=== PATIENT | male | born 1950 | race Caucasian/White ===

== ENCOUNTER 2019-06-26 12:56 | Emergency (ER) | payer OTHER ==
[~2019-06-26] VITALS: Ht 193 cm; Wt 97.5 kg
--- NOTE | 2019-06-26 13:10 | NUR ---
pt bibra to er bed 12. per ems report pt got dizzy while walking from the store going back home carrying grocery. pt denies syncopal episode but states nearly fainted. also c/o blurring of vision but states chronic. placed on monitior. awaiting md white.
--- NOTE | 2019-06-26 13:18 | NUR ---
tania todd at bedside for eval.
[2019-06-26] MEDS ORDERED: IV NS 0.9% 500 ML BAG IV ONE (13:30)
--- NOTE | 2019-06-26 13:35 | NUR ---
iv line started blood drawn and sent to lab.
[2019-06-26 13:47] LABS: BASOPHILS # (AUTO) 0.1 /CMM (0.0-0.2); BASOPHILS % (AUTO) 0.7 % (0.0-2.0); EOSINOPHILS % (AUTO) 0.1 % (0.0-6.0); HEMATOCRIT 41 % (39-51); HEMOGLOBIN 14.3 g/dL (13.5-17.5); LYMPHOCYTES # (AUTO) 1.2 /CMM (0.8-4.8); LYMPHOCYTES % (AUTO) 14.6 % (20.0-44.0); MEAN CORPUSCULAR HGB CONC 35 g/dl (31.0-36.0); MEAN CORPUSCULAR VOLUME 90 fL (80-96); MONOCYTES # (AUTO) 0.6 /CMM (0.1-1.30); MONOCYTES % (AUTO) 6.9 % (2.0-12.0); NEUTROPHILS # (AUTO) 6.5 /CMM (1.8-8.9); NEUTROPHILS % (AUTO) 77.7 % (43.0-81.0); PLATELET COUNT (AUTO) 145 /CMM (150-450); RED BLOOD CELL COUNT(AUTO) 4.59 MIL/uL (4.5-6.0); WHITE BLOOD COUNT (AUTO) 8.3 K/uL (4.3-11.0)
--- NOTE | 2019-06-26 13:52 | NUR ---
pt to radiology for head ct scan via [facility].
[2019-06-26 13:54] LABS: CALCIUM, SERUM 9.4 mg/dL (8.5-10.1); CREATININE 1.8 mg/dL (0.6-1.3); POTASSIUM 4.5 mmol/L (3.5-5.1)
[2019-06-26 14:00] LABS: ALBUMIN 4.1 g/dL (3.4-5.0); BILIRUBIN,DIRECT 0.4 mg/dL (0.0-0.2); BILIRUBIN,TOTAL 1.4 mg/dL (0.2-1.0); TOTAL PROTEIN, SERUM 6.6 g/dL (6.4-8.2)
--- NOTE | 2019-06-26 14:10 | NUR ---
pt unable to provide urine sample at this time.
[2019-06-26 15:09] LABS: APPEARANCE,URINE Clear (CLEAR); BILIRUBIN,URINE SMALL (NEGATIVE); BLOOD, URINE Negative Ery/uL (NEGATIVE); COLOR,URINE Yellow (YELLOW); KETONES,URINE 40 (NEGATIVE); LEUKOCYTE ESTERASE ,URINE Negative (NEGATIVE); NITRITE, URINE Negative (NEGATIVE); PH,URINE 5.5 (5.0-8.0); PROTEIN,URINE Negative (NEGATIVE); UGLUCOSE Negative (NEGATIVE)
[2019-06-26 15:19] LABS: BACTERIA,URINE None seen /HPF (None Seen); RBC,URINE 0-2 /HPF (0-2); SQUAMOUS EPITHELIAL CELL,UR Few /HPF (None Seen); WBC,URINE 0-2 /HPF (0-3)
--- NOTE | 2019-06-26 15:20 | NUR ---
PT REC'D A MEAL TRAY AND IS TOLERATING PO WELL.
--- NOTE | 2019-06-26 16:10 | NUR ---
emma maradiaga at bedside talking to patient.
--- NOTE | 2019-06-26 16:26 | NUR ---
SW Consult SW consult was requested by ER staff due to the pts behavior. SW met with the pt at bedside and conducted an assessment. Pt appeared to be alert and oriented x3 (time, place and self). Pt was unable to state why he was in the hospital. 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 Pt stated that his landlord can be reached at [phone]. Pt appeared to be disorganized and displayed tangential speech pattern. SW spoke to the LEGAL RESEARCH ANALYST and discussed that if the landlord cannot be reached then the pt will be evaluated by crisis. SW called the landlord and was unable to make contact. Plan: Crisis Evaluation requested for the pt on the terms of grave disability.
--- NOTE | 2019-06-26 18:20 | NUR ---
called arjun hutchins for psych eval.
--- NOTE | 2019-06-26 19:01 | NUR ---
arjun rn at bedside for psych eval.
--- NOTE | 2019-06-26 19:28 | NUR ---
REPORT REC'D FROM JOANIE MIGUEL FOR [facility].
--- NOTE | 2019-06-26 19:28 | NUR ---
PT ADDRESS [address] [place] [address]. [id number] [address]
--- NOTE | 2019-06-26 19:43 | NUR ---
CALLED [facility]SING [employer] RE: JENA VOUCHER FOR PT.
--- NOTE | 2019-06-26 20:05 | NUR ---
IV removed. Catheter intact and site benign. Pressure and 4x4 applied to site. No bleeding noted. Patient discharged to home in stable condition. Written and verbal after care instructions given. Patient verbalizes understanding of instruction. PT WAS TAKEN TO THE LOBBY VIA , DUE TO POOR EYESIGHT AT THIS TIME. PT AMBULATED WITH A STEADY GAIT TO THE . PT IS AWAITING P/U BY [facility]. [facility] IS AWARE THAT PT IS COMING BACK.
--- NOTE | 2019-06-26 20:06 | NUR ---
WILL CALL ELIER LOPEZ, AT [phone] WHEN PT LEAVES. JOHN CAN ASSIST THE PT BACK INTO HIS HOME.
[2019-06-26 20:52] VITALS: BP 137/72
== END 2019-06-26 20:53 | disposition home or self-care (01) ==
LOC: ER 13:02
DX: R55 Syncope and collapse (principal); H54.50 Low vision, one eye, unspecified eye; E80.7 Disorder of bilirubin metabolism, unspecified; N28.9 Disorder of kidney and ureter, unspecified; R41.89 Other symptoms and signs involving cognitive functions and awareness; Z60.2 Problems related to living alone
CPT/HCPCS: 36415; 70450; 71045; 80048; 80076; 81001; 82962; 84484; 85025; 85730; 93005; 96360; 99285; J7040; 81000-TC